=== PATIENT | female | born 1995 | race African-American/Black ===

== ENCOUNTER 2022-04-06 23:30 | Emergency (ER) | payer OTHER ==
[~2022-04-06] VITALS: Ht 172.7 cm; Wt 64.0 kg
[2022-04-06] MEDS ORDERED: diphenhydrAMINE 50MG/ML VIAL (J1200) IV ONE (23:50)
[2022-04-06] MEDS ORDERED: methylPREDNISolone 125MG 2ML VIAL IV ONE (23:50)
[2022-04-06] MEDS ORDERED: FAMOTIDINE 20MG/2ML VIAL IVP ONE (23:50)
[2022-04-07 00:30] VITALS: BP 136/81
[2022-04-07] MEDS ORDERED: PRED20TA PO (03:07)
== END 2022-04-07 03:17 | disposition home or self-care (01) ==
LOC: M ED 23:30
DX: R22.0 Localized swelling, mass and lump, head (principal); T78.40XA Allergy, unspecified, initial encounter; F33.9 Major depressive disorder, recurrent, unspecified; Z88.0 Allergy status to penicillin; Z88.8 Allergy status to other drugs, medicaments and biological substances
CPT/HCPCS: 93041; 94760; 96374; 96375; 99284; J1200; J2930

== ENCOUNTER → 2022-11-11 | Outpatient (REF) ==
[~2022-11-11] MED LIST: PRED20TA PO
== END ==
LOC: M EMP 11:37
PROVIDERS: ATTEND Family Medicine
DX: Z20.822 Contact with and (suspected) exposure to COVID-19 (principal)

== ENCOUNTER → 2023-04-05 | Outpatient (REF) | LOC: M LAB 09:44 | PROVIDERS: ATTEND Nurse Practitioner Adult Health | DX: Z02.89 Encounter for other administrative examinations (principal) ==

== ENCOUNTER → 2023-09-29 | Outpatient (CLI) | payer OTHER ==
[2023-09-29 13:38] LABS: HCG, SERUM QUANTITATIVE < 2.6 MIU/ML (<4.2)
[2023-09-29 13:40] LABS: HCG, SERUM QUALITATIVE NEGATIVE (NEGATIVE)
== END ==
LOC: M LAB 12:33
PROVIDERS: ATTEND Physician Assistant
DX: Z32.01 Encounter for pregnancy test, result positive (principal)

== ENCOUNTER → 2023-11-01 | Outpatient (REF) | LOC: M EMP 08:21 | PROVIDERS: ATTEND Family Medicine | DX: Z20.822 Contact with and (suspected) exposure to COVID-19 (principal) ==

== ENCOUNTER → 2023-12-01 | Outpatient (CLI) | payer OTHER ==
[2023-12-01 18:23] LABS: HCG, SERUM QUALITATIVE POSITIVE (NEGATIVE)
[2023-12-01 18:42] LABS: HCG, SERUM QUANTITATIVE 5291.9 MIU/ML (<4.2)
== END ==
LOC: M LAB 17:01
PROVIDERS: ATTEND Physician Assistant
DX: Z33.1 Pregnant state, incidental (principal)

== ENCOUNTER → 2024-01-08 | Outpatient (REF) | payer OTHER | LOC: M PLALAB 10:16 | PROVIDERS: ATTEND Advanced Practice Midwife | DX: Z34.91 Encounter for supervision of normal pregnancy, unspecified, first trimester (principal) ==

== ENCOUNTER → 2024-01-15 | Outpatient (CLI) | payer OTHER ==
[2024-01-15 12:15] LABS: HEMATOCRIT 35.2 % (36.0-47.0); HEMOGLOBIN 11.8 g/dl (12.0-15.5); MEAN CORPUSCULAR HEMOGLOBIN 30.2 pg (27.0-33.0); MEAN CORPUSCULAR HGB CONC 33.5 g/dl (32.0-36.5); PLATELET COUNT, AUTOMATED 205 10^3/uL (150-450); RED BLOOD COUNT 3.91 10^6/uL (4.00-5.40); WHITE BLOOD COUNT 5.1 10^3/uL (4.0-10.0)
[2024-01-15 12:50] LABS: HIV 1&2 SCREEN NEGATIVE (NEGATIVE)
[2024-01-15 12:59] LABS: HEPATITIS C VIRUS ABY INDEX < 0.02 INDEX (<0.8)
[2024-01-15 13:28] LABS: GC DNA AMPLIFICATION NEGATIVE (NEGATIVE)
== END ==
LOC: M PLALAB 08:00 → M LAB 08:00
PROVIDERS: ATTEND Advanced Practice Midwife
DX: Z34.91 Encounter for supervision of normal pregnancy, unspecified, first trimester (principal)

== ENCOUNTER → 2024-04-23 | Outpatient (CLI) | payer OTHER ==
[2024-04-23 10:50] LABS: HEMATOCRIT 33.2 % (36.0-47.0); HEMOGLOBIN 11.1 g/dl (12.0-15.5); MEAN CORPUSCULAR HEMOGLOBIN 31.1 pg (27.0-33.0); MEAN CORPUSCULAR HGB CONC 33.4 g/dl (32.0-36.5); PLATELET COUNT, AUTOMATED 196 10^3/uL (150-450); RED BLOOD COUNT 3.57 10^6/uL (4.00-5.40); WHITE BLOOD COUNT 6.9 10^3/uL (4.0-10.0)
[2024-04-23 11:42] LABS: HIV 1&2 SCREEN NEGATIVE (NEGATIVE)
[2024-04-23 11:50] LABS: HEPATITIS C VIRUS ABY INDEX < 0.02 INDEX (<0.8)
[2024-04-23 13:27] LABS: GC DNA AMPLIFICATION NEGATIVE (NEGATIVE)
== END ==
LOC: M PLALAB 07:00
PROVIDERS: ATTEND Advanced Practice Midwife
DX: Z34.82 Encounter for supervision of other normal pregnancy, second trimester (principal)

== ENCOUNTER 2024-05-06 08:53 | Emergency (ER) | payer OTHER ==
[2022-04-07 00:30] VITALS: O2SAT 100
[2024-05-06 08:55] VITALS: BP 127/71; TEMP 98.3
== END 2024-05-06 15:34 | disposition left against medical advice (07) ==
LOC: M ED 08:53
DX: Z53.21 Procedure and treatment not carried out due to patient leaving prior to being seen by health care provider (principal)

== ENCOUNTER 2024-05-06 09:04 | Outpatient (CLI) | payer OTHER ==
[~2024-05-06] VITALS: Ht 172.7 cm; Wt 77.9 kg
[2024-05-06 09:21] VITALS: BP 111/64
== END 2024-05-06 10:13 | disposition home or self-care (01) ==
LOC: M LDO 09:04
PROVIDERS: ATTEND Obstetrics & Gynecology
DX: O26.892 Other specified pregnancy related conditions, second trimester (principal); R25.2 Cramp and spasm; Z3A.27 27 weeks gestation of pregnancy
CPT/HCPCS: 59025; 81001; G0463

== ENCOUNTER 2024-06-14 21:04 | Outpatient (CLI) | payer OTHER ==
[~2024-06-14] VITALS: Ht 172.7 cm; Wt 83.7 kg
[2024-06-14 21:23] VITALS: BP 117/60
[2024-06-14] MEDS ORDERED: PRENTAB9 PO (21:30)
[2024-06-14] MEDS ORDERED: HOME MED LIST COMPLETE! XX SCH (21:30)
== END 2024-06-14 22:50 | disposition home or self-care (01) ==
LOC: M LDO 21:04
PROVIDERS: ATTEND Advanced Practice Midwife
DX: O36.8130 Decreased fetal movements, third trimester, not applicable or unspecified (principal); Z88.0 Allergy status to penicillin; Z88.8 Allergy status to other drugs, medicaments and biological substances; Z67.91 Unspecified blood type, Rh negative; Z87.59 Personal history of other complications of pregnancy, childbirth and the puerperium; Z3A.33 33 weeks gestation of pregnancy
CPT/HCPCS: 59025; 76815; G0463

== ENCOUNTER → 2024-07-02 | Outpatient (REF) | payer OTHER ==
[~2024-07-02] MED LIST changes: +PRENTAB9 PO
== END ==
LOC: M SFHCWAGY 09:46
PROVIDERS: ATTEND Advanced Practice Midwife
DX: Z34.83 Encounter for supervision of other normal pregnancy, third trimester (principal); Z36.85 Encounter for antenatal screening for Streptococcus B

== ENCOUNTER 2024-07-04 12:13 | Outpatient (CLI) | payer OTHER ==
[~2024-07-04] VITALS: Ht 172.7 cm; Wt 84.7 kg
[2024-07-04 12:02] VITALS: BP 110/62
[2024-07-04] MEDS ORDERED: HOME MED LIST COMPLETE! XX SCH (12:20)
== END 2024-07-04 13:10 | disposition home or self-care (01) ==
LOC: M LDO 12:13
PROVIDERS: ATTEND Specialist
DX: O26.893 Other specified pregnancy related conditions, third trimester (principal); N89.8 Other specified noninflammatory disorders of vagina; Z3A.36 36 weeks gestation of pregnancy
CPT/HCPCS: 59025; 76815; 76816; 76820; G0463

== ENCOUNTER → 2024-07-04 | Outpatient (CLI) | payer OTHER | LOC: M WHC 11:06 | PROVIDERS: ATTEND Obstetrics & Gynecology | DX: O09.293 Supervision of pregnancy with other poor reproductive or obstetric history, third trimester (principal); Z3A.36 36 weeks gestation of pregnancy ==